=== PATIENT | female | born 1955 | race Caucasian/White ===

== ENCOUNTER 2017-08-24 13:54 | Inpatient (IN) | payer OTHER ==
[~2017-08-24] VITALS: Ht 180.3 cm; Wt 87.8 kg
--- NOTE | 2017-08-24 10:45 | Operative Report ---
Operative/Inv Procedure Report Surgeon/Cafe Attendant: Marquita Rosales MD 3. Middle turbinate reduction, bilateral Pre-Operative Diagnosis: 1. Deviated nasal septum 2. Inferior turbinate hypertrophy, bilateral 3. Middle turbinate hypertrophy, bilateral Post-Operative Diagnosis: Same Estimated Blood Loss: less than 50ml Surgeon/Cafe Attendant: Marquita Rosales MD Anesthesia: general endotracheal tube Specimens: Septum, inferior turbinates, middle turbinates Complications: Non- Condition: Stable on leaving the OR Operative Indication: Difficulty breathing through nose Recurrent sinusitis Long treatment with medical therapy without improvement, including antihistamines decongestant nasal sprays Operative/Procedure Note Note: The patient was brought to the operating room. Placed on the operating room table in supine position. At first timeout was performed identifying the patient, ID numbers and procedure to be performed. Next general oral endotracheal anesthesia was induced. Endotracheal tube was secured with tape over the last corner of the lip. Operating room table was rotated 90 to the left and patient was positioned for septal surgery with head slightly hyperextended and rotated to the right. At first vasoconstriction was carried by application of Afrin spray on cottonoid pledgets. Next nasal septum was injected with 1% lidocaine with 1: 100,000 epinephrine approximately 9 mL was injected on the last and another 6 mL on the right. This followed by placement of cotton pledgets saturated with cocaine flakes and Afrin spray. Patient's face was then prepped and draped in routine manner and surgery was performed. A KISS sponge was placed into the nasopharynx for drainage secretions. A Hemitransfixion incision was placed on the left and anterior mucoperichondrial tunnel was elevated followed by posterior mucoperiosteal tunnel. Bony cartilaginous junction was identified and and mucoperiosteal tunnel was elevated on the contralateral side. And anteriorly there was quadrangular cartilage prominence to the left adjacent to the maxillary crest as well as superiorly adjacent to perpendicular plate of the ethmoid. Posteriorly there was significant vomerine protrusion with a spur to the left. At first quadrangular cartilage was shaved along the floor of the nose followed by chiseling of the maxillary crest. This relieved the inferior obstruction. Superiorly bony cartilaginous junction was and some of the quadrangular cartilage was shaved to relieve superior obstruction. Attention was paid to the vomerine bone. The bone was removed in a piecemeal manner followed by removal of the vomerine spurr. This relieved posterior obstruction. During removal of the spur also small fenestra was created in the posterior septum to serve as a drainage hole. Once the septoplasty was completed, closure was carried with 5-0 chromic simple sutures. Followed by placement of a mattress sutures with 5-0 chromic. Please note that the entire septoplasty was carried with 0 scope as well as directed visualization with a headlight. Next left middle turbinate was reduced along its inferior border with direct visualization with 0 scope. Similar procedure was carried on the right. The right middle turbinate was reduced along its inferior border. The middle turbinates were hypertrophied and obstructing the middle meatus. Next inferior turbinates were then outfractured and excised in submucous maner, first left then right. Surgery was completed. Nasal packing was applied next. Nasal fossa was packed with Telfa saturated with Bactroban ointment. Telfa was stitched anteriorly with 2-0 silk to prevent posterior displacement. Helotene slurry was injected into the middle meatus bilaterally for hemostasis. Surgery was completed. The patient was reawakened, extubated and taken to the recovery room in good condition. There were no complications. Estimated blood was was 30 mL. Discharge Disposition: PACU
[2017-08-24] MEDS ORDERED: MIRALAX119 GM PO (14:17)
[2017-08-24 14:50] LABS: ABSOLUTE BASOPHIL COUNT 0 /CUMM (0.0-0.2); ABSOLUTE EOSINOPHIL COUNT 0.1 /CUMM (0.0-0.7); ABSOLUTE GRANULOCYTE CT 4.4 /CUMM (1.4-6.5); ABSOLUTE LYMPH COUNT 2.8 /CUMM (1.2-3.4); ABSOLUTE MONOCYTE COUNT 0.6 /CUMM (0.10-0.60); BASOPHIL % 0.4 % (0.0-2.0); EOSINOPHIL % 1.6 % (0-5); GRANULOCYTE % 55.2 % (42.2-75.2); HEMATOCRIT 44.2 % (37-47); MEAN CORPUSCULAR HGB 29.3 PG (27.0-31.0); MEAN CORPUSCULAR HGB CONC 33.2 G/DL (33.0-37.0); MEAN CORPUSCULAR VOLUME 88.1 FL (81.0-99.0); MEAN PLATELET VOLUME 9.6 FL (7.4-10.4); PLATELET COUNT 217 /CUMM (130-400); RBC DISTRIBUTION WIDTH 13.8 % (11.5-14.5); RED BLOOD CELL CT 5.02 /CUMM (4.20-5.40); WHITE BLOOD CELL COUNT 7.9 /CUMM (4.8-10.8)
--- NOTE | 2017-08-24 14:57 | ED CARDIAC/CP/PALPITATIONS ---
History of Present Illness General Chief Complaint: General Adult Stated Complaint: SENT TO ER FROM [facility] FOR HR 32 AND BIGEMINY Source: patient, family Exam Limitations: no limitations Allergies Coded Allergies: prochlorperazine (From COMPAZINE) (Severe, DELIRIUM 08/23/17) shellfish derived (Mild, REDNESS TO FACE 08/24/17) Reconcile Medications Polyethylene Glycol 3350 (Miralax) 17 GRAM/DOSE POWDER 17 GM PO DAILY CHRONIC CONSTIPATION (Reported) mix with water, juice, soda, coffee or tea Triage Note: TRIAGE: PT BROUGHT TO ER FROM SAME DAY SURGERY FOR HR 32 AND BIGEMINY. PT WAS SCHEDULED FOR SURGERY FOR DEVIATED SEPTUM. PER KG FROM [facility] PATIENT HAD NO MEDICATION OR NO PART OF PROCEDURE INITIATED. PT HAS IV ACCESS TO R HAND FROM [facility]. PT DENIES ANY PAIN OR ANY COMPLAINTS AT ALL. HR RANGE 60-80 ON SEDIMENT REMEDIATION CONSULTANT, EKG PENDING. Triage Nurses Notes Reviewed? yes Onset: Abrupt Duration: hour(s): Timing: single episode today Quality/Severity: moderate HPI: 62YO FEMALE presents to ED from the OR for a planned deviated septum surgery due to low heart rate of 32bpm. She has no history of significant bradycardia in the past, she has never seen a managed care director. Patient has been NPO since last night prior to surgery. Patient currently feels in her usual state of health, remains asymptomatic. She endorses tingling in her feet at night time for the past year but she denies any vitamin deficiency issues. She denies chest pain, palpitations, shortness of breath, nausea, vomiting, dysuria, abdominal pain, headache, lightheadedness, constipation, or diarrhea. She states that she exercises three times a week. (Princess GALVAN,Adali Mejía) Vital Signs & Intake/Output Vital Signs & Intake/Output Vital Signs Date Time Temp Pulse Resp B/P B/P Pulse O2 O2 Flow FiO2 Mean Ox Delivery Rate 08/24 1713 98.2 61 18 130/74 99 Room Air 08/24 1443 Room Air Room Air 08/24 1405 98.1 99 20 154/68 96 Room Air (Yaima QUIGLEY,Edgar Rios) Past History Travel History Traveled to [place] past 21 day No Medical History Any Pertinent Medical History? 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 No (Adali Morgan) Review of Systems Review of Systems Constitutional: Reports: no symptoms. EENTM: Reports: no symptoms. Respiratory: Reports: no symptoms. Cardiovascular: Reports: see HPI. GI: Reports: no symptoms. Genitourinary: Reports: no symptoms. Musculoskeletal: Reports: no symptoms. Skin: Reports: no symptoms. Neurological/Psychological: Reports: see HPI. Hematologic/Endocrine: Reports: no symptoms. Immunologic/Allergic: Reports: no symptoms. All Other Systems: Reviewed and Negative (Adali Morgan) Physical Exam Physical Exam General Appearance: well developed/nourished, no apparent distress, alert, awake Head: atraumatic, normal appearance Eyes: Bilateral: normal appearance. Ears, Nose, Throat: hearing grossly normal Neck: normal inspection, supple, full range of motion Respiratory: normal breath sounds, no respiratory distress, lungs clear Cardiovascular: bradycardia Peripheral Pulses: 2+ radial (R), 2+ radial (L), 2+ dorsalis pedis (R), 2+ dorsalis pedis (L) Gastrointestinal: normal bowel sounds, soft, non-tender, no organomegaly, healed surgical scars Back: normal inspection, normal range of motion Extremities: normal inspection, normal range of motion, no edema Neurologic/Psych: no motor/sensory deficits, awake, alert, oriented x 3 Skin: intact, normal color, warm/dry Core Measures ACS in differential dx? Yes CVA/TIA Diagnosis No Sepsis Present: No Sepsis Focused Exam Completed? No (Adali Morgan) Progress Differential Diagnosis: AMI, atrial fibrillation, CHF/pulm edema, PVCs/PACs, drug induced bradycardia, hypothermia, hypothyroidism, electrolyte abnormality Diagnostic Imaging: Viewed by Me: Radiology Read. Discussed w/RAD: Radiology Read. Radiology Impression: PATIENT: LISHA MATAMOROS PRESENT AGE : 62 PATIENT ACCOUNT NO: [id number] : 53 LOCATION: [facility] ORDERING PHYSICIAN: Adali GALVAN SERVICE DATE: 08/24/17 EXAM TYPE: RAD - XRY-PORTABLE CHEST XRAY EXAMINATION: XR PORTABLE CHEST CLINICAL INFORMATION: Bradycardia COMPARISON: None TECHNIQUE: Portable frontal view of the chest was obtained. FINDINGS: Cardiac leads overlie the chest. The lungs are well expanded. There is no focal consolidation, edema, or effusion. No pneumothorax. The cardiomediastinal silhouette is within normal limits. No acute osseous abnormality. IMPRESSION: No acute pulmonary findings. DICTATED BY: Jay QUIGLEY,Triston DATE/TIME DICTATED:08/24/171518 NEWSPAPER SUBSCRIPTION SOLICITOR:DEEDEE DATE/ TIME TRANSCRIBED:08/24/171518 CONFIDENTIAL, DO NOT COPY WITHOUT APPROPRIATE AUTHORIZATION. <Electronically signed in Other Vendor System> SIGNED BY: Jay QUIGLEY,Triston 08/24/17 1524 Initial ED EKG: sinus bradycardia with ventricular bigeminy (Princess GALVAN,Adali Mejía) Plan of Care: Orders Procedure Date/time Status Heart Healthy Diet 08/25 B Active Heart Healthy Diet 08/24 D Complete Patient Data 08/24 1856 Active Misc Message 08/24 183 Active ED Holding Orders 08/24 1838 Active Admit to inpatient 08/24 1838 Active Vital Signs 08/24 1838 Active Code Status 08/24 183 Active Add-on Test (ER Only) 08/24 1517 Active THYROID STIMULATING HORMONE 08/24 1440 Complete FREE T4 08/24 1440 Complete Telemetry/Diet Technician Registered 08/24 1359 Active TROPONIN LEVEL 08/24 1359 Complete COMPREHENSIVE METABOLIC PANEL 08/24 1359 Complete CBC WITHOUT DIFFERENTIAL 08/24 1359 Complete EKG 08/24 1359 Active Laboratory Tests 08/24/17 1440: Anion Gap 12, Estimated GFR > 60, BUN/Creatinine Ratio 23.3, Glucose 88, Calcium 9.5, Total Bilirubin 0.8, AST 22, ALT 30, Alkaline Phosphatase 69, Troponin I < 0.01, Total Protein 7.0, Albumin 4.1, Globulin 2.9, Albumin/Globulin Ratio 1.4, TSH 0.488, Free T4 1.35, CBC w Diff NO MAN DIFF REQ, RBC 5.02, MCV 88.1, MCH 29.3, MCHC 33.2, RDW 13.8, MPV 9.6, Gran % 55.2, Lymphocytes % 35.7, Monocytes % 7.1, Eosinophils % 1.6, Basophils % 0.4, Absolute Granulocytes 4.4, Absolute Lymphocytes 2.8, Absolute Monocytes 0.6, Absolute Eosinophils 0.1, Absolute Basophils 0 Patient's workup shows no acute abnormality however her EKG does show significant sinus bradycardia with ventricular bigeminy. Patient has been on telemetry monitoring with persistent bradycardia on monitors. Patient has no history of previous arrhythmia or bradycardia. I discussed findings with managed care director Dr. Arevalo who recommends hospital stay for further cardiac evaluation. Case management recommend full admission. Dr. Erwin spoke with hospitalist regarding this patient's telemetry admission. (Adali Morgan) (Yaima QUIGLEY,Edgar Rios) Departure Departure Disposition: STILL A PATIENT Condition: Stable Clinical Impression Primary Impression: Bradycardia Secondary Impressions: Ventricular bigeminy Referrals: Jen Fox MD (PCP/Family) Departure Forms: Customer Survey General Discharge Information Admission Note Spoke With: Yareli Ceja MD Documentation of Exam: Documentation of any treatments & extenuating circumstances including Concerns Regarding Discharge (functional status, medication knowledge or non-compliance, living conditions, etc.) that warrant an admission rather than observation: [ Bradycardia with ventricular trigeminy requiring telemetry monitoring, cardiology consult, repeat EKGs and and troponins, premature discharge medically unsafe.] (Adali Morgan) PA/TACTICAL AIR DEFENSE CONTROLLER Co-Sign Statement Statement: ED Attending supervision documentation- [X] I saw and evaluated the patient. I have also reviewed all the pertinent lab results and diagnostic results. I agree with the findings and the plan of care as documented in the PA's/TACTICAL AIR DEFENSE CONTROLLER's documentation. Patient presents for evaluation of a slow heart rate. Physical examination reveals an alert conversant uncomfortable appearing woman with a somewhat slow but otherwise regular heartbeat. [] I have reviewed the ED Record and agree with the PA's/TACTICAL AIR DEFENSE CONTROLLER's documentation. [] Additions or exceptions (if any) to the PAs/TACTICAL AIR DEFENSE CONTROLLER's note and plan are summarized below: [] (Yaima QUIGLEY,Edgar Rios) Critical Care Note Critical Care Note Critical Care Time: non-applicable (Adali Morgan)
--- NOTE | 2017-08-24 15:24 | RADIOLOGY REPORT ---
EXAMINATION: XR PORTABLE CHEST CLINICAL INFORMATION: Bradycardia COMPARISON: None TECHNIQUE: Portable frontal view of the chest was obtained. FINDINGS: Cardiac leads overlie the chest. The lungs are well expanded. There is no focal consolidation, edema, or effusion. No pneumothorax. The cardiomediastinal silhouette is within normal limits. No acute osseous abnormality. IMPRESSION: No acute pulmonary findings.
--- NOTE | 2017-08-24 19:21 | History & Physical ---
Claudia Monique 08/24/171919: General Information and HPI MD Statement: I have seen and personally examined LISHA MATAMOROS and documented this H&P. The patient is a 62 year old F who presented with a patient stated chief complaint of [bradycardia]. Source of Information: patient Exam Limitations: no limitations History of Present Illness: 62-year-old female with a past medical history of melanoma, diaphragmatic hernia s/p surgery in 1999 x2; intestinal obstruction x3 s/p surgery squamous cell, deviated nasal septum, GERD who presents to the ER from same day surgery for asymptomatic bradycardia with a heart rate of 32 and ventricular bigeminy. According to the patient she was in her usual state of health and is scheduled for surgery for her deviated nasal septum this morning. She states that preoperatively her blood pressure was 109/74 and her heart rate was in the 70s. She states she usually gets up at 5 AM, however, endorses getting up a little late this morning around 8 AM she felt a little bit more sleepy than usual today. She states that her [id number] brought her to the ER and she was completely fine until she was on the operating table when the nurse told her that her heart rate was in the 30s. Of note patient does have bradycardia with heart rate each day is in the 50s while at rest and it goes up to a maximum of 70-80s while she is walking around. Of note patient does exercise 3 times a day and does a lot of water aerobics and bicycles. She denies any chest pain, palpitations, any fluttering of the heart, any shortness of breath, orthopnea, PND, nausea, vomiting, any heartburn-like symptoms, any loss of consciousness or passing out while exercising, any family history of early cardiac however does occasionally endorse some. Of note patient has a history of diaphragmatic hernia for which he underwent surgeries 1999. 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 As the medical team went to examine the patient, she complained of being a little clammy and slightly diaphoretic, however, denied any chest pain or palpitations. Family history pertinent for his father was 90 years of age and ended up getting a pacemaker. Allergies/Medications Allergies: Coded Allergies: prochlorperazine (From COMPAZINE) (Severe, DELIRIUM 08/23/17) shellfish derived (Mild, REDNESS TO FACE 08/24/17) Home Med list Polyethylene Glycol 3350 (Miralax) 17 GRAM/DOSE POWDER 17 GM PO DAILY CHRONIC CONSTIPATION (Reported) mix with water, juice, soda, coffee or tea Past History Travel History Traveled to [place] past 21 day No Medical History Neurological: NONE EENT: DEVITATED SEPTUM Cardiovascular: NONE Respiratory: NONE Gastrointestinal: GERD, DIPHRAHMATIC HERNIA ARTIFICIAL DIAPHRAGM SBO CHRONIC CONSTIPATION Hepatic: NONE Renal: NONE Musculoskeletal: NONE Psychiatric: NONE Endocrine: NONE Blood Disorders: NONE Cancer(s): melanoma, 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 Psychosocial History Where do you live? Home Primary Language: Nepalese Smoking Status: Never Smoked ETOH Use: occasional use Illicit Drug Use: denies illicit drug use Review of Systems Review of Systems Constitutional: Reports: diaphoresis. Denies: chills, fever, malaise, weakness. EENTM: Denies: visual changes. Cardiovascular: Denies: chest pain, edema, orthopena, palpitations, peripheral edema, syncope. Respiratory: Denies: cough, hemoptysis, orthopnea, short of breath, sputum production, wheezing. GI: Denies: abdominal pain, constipation, diarrhea, melena, nausea, vomiting. Genitourinary: Reports: no symptoms. Musculoskeletal: Reports: no symptoms. Neurological/Psychological: Denies: headache, numbness, tingling, tremors. Exam & Diagnostic Data Last 24 Hrs of Vital Signs/I&O Vital Signs Date Time Temp Pulse Resp B/P B/P Pulse O2 O2 Flow FiO2 Mean Ox Delivery Rate 08/25 2055 97 Room Air 08/24 2033 44 18 160/80 97 Room Air 08/24 2028 97.6 37 18 147/75 98 Room Air 08/24 1713 98.2 61 18 130/74 99 Room Air 08/24 1443 Room Air Room Air 08/24 1405 98.1 99 20 154/68 96 Room Air Intake & Output 08/24 1600 08/24 0800 04/06 0000 Intake Total Output Total Balance Patient 190 lb Weight Weight Reported by Patient Measurement Method Physical Exam General Appearance Alert, Oriented X3, Cooperative, No Acute Distress Skin No Rashes Skin Temp/Moisture Exam: Warm/Dry Sepsis Skin Exam (color): Normal for Ethnicity HEENT Atraumatic, PERRLA, EOMI, Mucous Membr. moist/pink Neck Supple, No JVD, No thryomegaly, No LAD Cardiovascular Normal S1, Normal S2, No Murmurs, sinus bradycardia Lungs Clear to Auscultation, Normal Air Movement Abdomen Normal Bowel Sounds, Soft, No Tenderness Neurological Normal Speech, Strength at 5/5 X4 Ext, Normal Tone, Sensation Intact, Cranial Nerves 3-12 NL, Reflexes 2+ Extremities No Clubbing, No Cyanosis, No Edema, Normal Pulses, No Tenderness/ Swelling Sepsis Peripheral Pulse Location: Dorsalis Pedis Last 24 Hrs of Labs/Subhash: Laboratory Tests 08/24/17 2016: Troponin I Pending 08/24/17 1440: Anion Gap 12, Estimated GFR > 60, BUN/Creatinine Ratio 23.3, Glucose 88, Calcium 9.5, Phosphorus Pending, Magnesium Pending, Total Bilirubin 0.8, AST 22, ALT 30, Alkaline Phosphatase 69, Troponin I < 0.01, Total Protein 7.0, Albumin 4.1, Globulin 2.9, Albumin/Globulin Ratio 1.4, TSH 0.488, Free T4 1.35, CBC w Diff NO MAN DIFF REQ, RBC 5.02, MCV 88.1, MCH 29.3, MCHC 33.2, RDW 13.8, MPV 9.6, Gran % 55.2, Lymphocytes % 35.7, Monocytes % 7.1, Eosinophils % 1.6, Basophils % 0.4, Absolute Granulocytes 4.4, Absolute Lymphocytes 2.8, Absolute Monocytes 0.6, Absolute Eosinophils 0.1, Absolute Basophils 0, Lyme Disease Antibody Pending Diagnostic Data EKG Results Ventricular bigeminy, HR: 40; normal axis; no ST-T changes CXR Results FINDINGS: Cardiac leads overlie the chest. The lungs are well expanded. There is no focal consolidation, edema, or effusion. No pneumothorax. The cardiomediastinal silhouette is within normal limits. No acute osseous abnormality. IMPRESSION: No acute pulmonary findings. Assessment/Plan Assessment: 62-year-old female with a past medical history of melanoma, squamous cell, deviated nasal septum, GERD who presents to the ER from same day surgery for asymptomatic bradycardia with a heart rate of 32 and ventricular bigeminy. Vitals at the time of admission blood pressure 130/74, respiratory rate of 18, pulse 61, afebrile saturating 99% on room air. Labs pertinent for normal white blood cell count of 7900, H&H of 14.7/44.2, platelet count of 217,000. Serum chemistries pertinent for sodium of 145, potassium 4.4, bicarb of 26, anion gap of 12, BUN 14 with a creatinine of 0.6. LFTs unremarkable with a total bili of 0.8, AST/ALT of 22/30, alk phos of 69, first of troponin negative less than 0.01 and TSH of 0.488 with a free T4 1.35. Chest x-ray showed no acute pulmonary findings. EKG revealed ventricular bigeminy with HR: 40; normal axis; no ST-T changes. Assessment and plan Admit patient to telemetry #Ventricular bigeminy Continue to maintain on the monitor for another 24-48 hours Most likely an incidental finding. Will r/o ACS with trop and EKG @ 8:00pm and 2:00am Echo to r.o RWMA, and any valvular abnormalities Follow-up serum magnesium and phosphorus level Follow-up lipid profile in the Admister ASA Atropine at bedside, if HR <30 Apply pacer pads Cardiology consult placed with Dr. Arevalo. F/U recs. DVT prophylaxis Fibrin 5000 international units daily subcu Diet Heart healthy CODE STATUS Full code As Ranked By This Provider Problem List: 1. Ventricular bigeminy 2. Bradycardia Core Measures/Misc (02/04) Acute Coronary Syndrome ACS Diagnosis: No Congestive Heart Failure Congestive Heart Failure Diagnosis No Cerebrovascular Accident CVA/TIA Diagnosis: No VTE (View Protocol) VTE Risk Factors Age>40 No Mechanical VTE Prophylaxis d/t N/A MechProphylax Ordered No VTE Pharm Prophylaxis d/t NA PharmProphylax ordered Sepsis (View protocol) Sepsis Present: No Resident Review Statement Resident Statement: ADMITTED BY RESIDENT Yareli Ceja 08/25/17 0447: Attending MD Review Statement Attending Statement Attending MD Statement: examined this patient, discuss w/resident/PA/CANDY PACKER, agreed w/resident/PA/CANDY PACKER, reviewed EMR data (avail), reviewed images, amended to note Attending Assessment/Plan: CC: Bradycardia PMH: History of bowel resection in the past, fundoplication Patient was at same day surgery for deviated nasal septum, her blood pressure was 109/74 and pulse 74 preop. Just before for procedure in OR her heart rate dropped to 34 with ventricular bigeminy. Patient was completely asymptomatic at that time but surgery was aborted and patient was sent to ER. Patient did not notice any chest pain, palpitation, diaphoresis when low heart rate was noticed. Patient states that her heart rate at home remains from 40s to 50s, (observing her fitbit ), physically active and never noticed any chest pain, palpitation, diaphoresis during exercise. While in ER around 8:30 PM she had another episode of low pulse at that time she felt flushed and clammy, episode resolved without treatment. Vitals: Afebrile, pulse 35-99, RR 20, blood pressure 154/68, saturating 96% on room air On exam: A O 3, cooperative, no acute distress, neck supple, JVD normal, no lymphadenopathy, mucosa moist, no focal neurological deficit, no dependent edema , no obvious skin rashes or inflammation CVS: S1-S2, RRR, faint diastolic murmur in mitral area. RS: Clear to auscultate bilaterally. Abdomen: Soft, NT, ND, bowel sounds present. Peripheral pulses perfusion normal CXR: No acute pulmonary findings. Assessment and plan 62-year-old female with no significant medical history, multiple surgeries in the past presented in ER from OR after incidental finding of bradycardia and ventricular bigeminy. Patient did not have any symptoms during that episode, later pulse regularized to 80s and 90s. Patient had second episode while in ER, similar bradycardia with bigeminy at that time she felt mild flushed and clammy but episode resolved by itself. Before today no such symptoms, physically active without any chest pain, palpitation, presyncope. Physical exam unremarkable except faint diastolic murmur in the mitral area. Given the arrhythmias patient would benefit telemetry admission. Dr. Arevalo was called for cardiology who agrees with the plan. + Ventricular bigeminy - Admit to telemetry - Continuous telemetry monitoring - Serial troponins and ECGs - Echocardiogram in a.m. - Check magnesium and phosphorus, replete if low - Continue pacer pads on an bedside atropine if required - DVT prophylaxis
--- NOTE | 2017-08-24 22:34 | Cons- Cardiology ---
General Information and HPI Consulting Request Date of Consult: 08/25/17 Requested By: Yareli Ceja MD Reason for Consult: Ventricular bigeminy, bradycardia History of Present Illness: The patient is a 62-year-old female with history of melanoma, GERD, and multiple abdominal surgeries who presented for elective surgery for deviated septum. When placed on the monitor she was noted to be in ventricular bigeminy with sinus bradycardia. During periods of bigeminy, her heart rate was noted to drop into the 40s. She was placed on telemetry for overnight monitoring. She has been completely asymptomatic. She has had no syncope. No lightheadedness or dizziness. No presyncope. No fatigue. She denies any symptoms attributable to bradycardia. No chest pain. No prior cardiac history. She has been noted to have premature ventricular contractions in the past. Allergies/Medications Allergies: Coded Allergies: prochlorperazine (From COMPAZINE) (Severe, DELIRIUM 08/23/17) shellfish derived (Mild, REDNESS TO FACE 08/24/17) Home Med List: Polyethylene Glycol 3350 (Miralax) 17 GRAM/DOSE POWDER 17 GM PO DAILY CHRONIC CONSTIPATION (Reported) mix with water, juice, soda, coffee or tea Current Medications: Current Medications Sig/Melvina Start time Last Medication Dose Route Stop Time Status Admin Aspirin 81 MG DAILY 08/25 1000 AC 08/25 PO 1010 Atropine Sulfate 1 MG .STK-MED ONE 08/25 0506 DC IM 08/25 0507 Atropine Sulfate 1 MG ONE ONE 08/24 2100 DC IV 08/24 2101 Atropine Sulfate 0 .STK-MED ONE 08/24 2045 DC .ROUTE Heparin Sodium 5,000 UNIT Q8 08/24 2200 AC (Porcine) SC Polyethylene Glycol 17 GM DAILY 08/25 1119 AC PO Review of Systems Review of Systems: No rash. No tremor. No melena. All other systems were reviewed, and were noted to be negative. 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 Pacemaker FATHER Psychosocial History Where Do You Live? Home Smoking Status: Never Smoked ETOH Use: occasional use Illicit Drug Use: denies illicit drug use Exam & Diagnostic Data Vital Signs and I&O Vital Signs Date Time Temp Pulse Resp B/P B/P Pulse O2 O2 Flow FiO2 Mean Ox Delivery Rate 08/25 1345 55 08/25 1000 40 08/25 0742 97.8 57 18 122/78 94 Room Air 08/24 2242 97.8 35 18 142/78 97 08/246 97 Room Air 08/24 203 44 18 160/80 97 Room Air 08/24 2028 97.6 37 18 147/75 98 Room Air 08/24 1713 98.2 61 18 130/74 99 Room Air 08/24 1443 Room Air Room Air Intake & Output 08/25 1600 08/25 0800 08/25 0000 08/24 1600 08/24 0800 08/24 0000 Intake Total 660 550 200 Output Total Balance 660 550 200 Intake, Oral 660 550 200 Number 1 Bowel Movements Patient 194 lb 190 lb Weight Weight Bed scale Reported by Patient Measurement Method Physical Exam: Gen: The patient is in no acute distress HEENT: Normal nose, ears, and oropharynx. Pupils equal bilaterally. Conjunctiva normal. Neck: Supple with no JVD, no masses, and no thyromegaly Lungs: Clear to auscultation with normal respiratory effort Heart: RRR, S1, S2, with frequent ectopy, 2/6 systolic murmur at the apex. No peripheral edema, 2+ pulses in the lower extremities bilaterally Abdomen: Soft, nontender, no masses. No hepatomegaly. No splenomegaly Extremities: No clubbing or cyanosis. Normal muscle strength in the upper and lower extremities Skin: Normal skin turgor with no skin ulcers or lesions noted. Neuro: Cranial nerves intact. Sensation intact Psych: Alert and oriented x 3 with appropriate affect Labs/Subhash Results: Laboratory Tests 08/25 Chemistry Sodium (137 - 145 mmol/L) 142 Potassium (3.5 - 5.1 mmol/L) 3.7 Chloride (98 - 107 mmol/L) 111 H Carbon Dioxide (22 - 30 mmol/L) 19 L Anion Gap (5 - 16) 13 BUN (7 - 17 mg/dL) 12 Creatinine (0.5 - 1.0 mg/dL) 0.6 Estimated GFR (>60 ml/min) > 60 BUN/Creatinine Ratio (7 - 25 %) 20.0 Troponin I (< 0.11 ng/ml) < 0.01 < 0.01 Triglycerides (<150 mg/dL) 108 Cholesterol (<200 MG/DL) 168 LDL Cholesterol, Calc (65 - 129 mg/dL) 89 HDL Cholesterol (40 - 60 mg/dL) 58 Cholesterol/HDL Ratio (0.00 - 4.23 %) 3 Hematology CBC w Diff NO MAN DIFF REQ WBC (4.8 - 10.8 /CUMM) 5.7 RBC (4.20 - 5.40 /CUMM) 4.54 Hgb (12.0 - 16.0 G/DL) 13.5 Hct (37 - 47 %) 39.9 MCV (81.0 - 99.0 FL) 87.9 MCH (27.0 - 31.0 PG) 29.7 MCHC (33.0 - 37.0 G/DL) 33.8 RDW (11.5 - 14.5 %) 13.5 Plt Count (130 - 400 /CUMM) 177 MPV (7.4 - 10.4 FL) 9.7 Gran % (42.2 - 75.2 %) 48.2 Lymphocytes % (20.5 - 51.1 %) 41.7 Monocytes % (1.7 - 9.3 %) 6.5 Eosinophils % (0 - 5 %) 2.5 Basophils % (0.0 - 2.0 %) 1.1 Absolute Granulocytes (1.4 - 6.5 /CUMM) 2.7 Absolute Lymphocytes (1.2 - 3.4 /CUMM) 2.4 Absolute Monocytes (0.10 - 0.60 /CUMM) 0.4 Absolute Eosinophils (0.0 - 0.7 /CUMM) 0.1 Absolute Basophils (0.0 - 0.2 /CUMM) 0.1 04/06 1440 Chemistry Sodium (137 - 145 mmol/L) 145 Potassium (3.5 - 5.1 mmol/L) 4.4 Chloride (98 - 107 mmol/L) 107 Carbon Dioxide (22 - 30 mmol/L) 26 Anion Gap (5 - 16) 12 BUN (7 - 17 mg/dL) 14 Creatinine (0.5 - 1.0 mg/dL) 0.6 Estimated GFR (>60 ml/min) > 60 BUN/Creatinine Ratio (7 - 25 %) 23.3 Glucose (65 - 99 mg/dL) 88 Calcium (8.4 - 10.2 mg/dL) 9.5 Phosphorus (2.5 - 4.5 mg/dL) 4.7 H Magnesium (1.6 - 2.3 mg/dL) 2.1 Total Bilirubin (0.2 - 1.3 mg/dL) 0.8 AST (14 - 36 U/L) 22 ALT (9 - 52 U/L) 30 Alkaline Phosphatase (<127 U/L) 69 Troponin I (< 0.11 ng/ml) < 0.01 Total Protein (6.3 - 8.2 g/dL) 7.0 Albumin (3.5 - 5.0 g/dL) 4.1 Globulin (1.9 - 4.2 gm/dL) 2.9 Albumin/Globulin Ratio (1.1 - 2.2 %) 1.4 TSH (0.270 - 4.200 uIU/mL) 0.488 Free T4 (0.78 - 2.44 ng/dL) 1.35 Hematology CBC w Diff NO MAN DIFF REQ WBC (4.8 - 10.8 /CUMM) 7.9 RBC (4.20 - 5.40 /CUMM) 5.02 Hgb (12.0 - 16.0 G/DL) 14.7 Hct (37 - 47 %) 44.2 MCV (81.0 - 99.0 FL) 88.1 MCH (27.0 - 31.0 PG) 29.3 MCHC (33.0 - 37.0 G/DL) 33.2 RDW (11.5 - 14.5 %) 13.8 Plt Count (130 - 400 /CUMM) 217 MPV (7.4 - 10.4 FL) 9.6 Gran % (42.2 - 75.2 %) 55.2 Lymphocytes % (20.5 - 51.1 %) 35.7 Monocytes % (1.7 - 9.3 %) 7.1 Eosinophils % (0 - 5 %) 1.6 Basophils % (0.0 - 2.0 %) 0.4 Absolute Granulocytes (1.4 - 6.5 /CUMM) 4.4 Absolute Lymphocytes (1.2 - 3.4 /CUMM) 2.8 Absolute Monocytes (0.10 - 0.60 /CUMM) 0.6 Absolute Eosinophils (0.0 - 0.7 /CUMM) 0.1 Absolute Basophils (0.0 - 0.2 /CUMM) 0 Serology Lyme Disease Antibody Pending Diagnostic Data EKG Results EKG tracings are independently reviewed. EKG from 08/24/17 at 1424 shows sinus rhythm with ventricular bigeminy at a rate of 60. Nonspecific T-wave abnormality EKG today reveals normal sinus rhythm at 50 with borderline left axis deviation. No ectopy is seen on repeat EKG CXR Results Cardiac leads overlie the chest. The lungs are well expanded. There is no focal consolidation, edema, or effusion. No pneumothorax. The cardiomediastinal silhouette is within normal limits. No acute osseous abnormality. Assessment/Plan Assessment/Plan Assessment: 62-year-old female presenting for elective surgery, found to be in ventricular bigeminy with sinus bradycardia. She is completely asymptomatic. Recommendations: * Echocardiogram to rule out cardiomyopathy secondary to ventricular ectopy and to evaluate for mitral regurgitation given the apical murmur. Because of the lack of availability of echocardiography today in the hospital, the echocardiogram can be done as an outpatient * Okay for discharge to home from cardiac stand point * Follow up in the office within 1 week. Echocardiogram to be scheduled in the office. * No indication for pacemaker placement for the asymptomatic sinus bradycardia * Will obtain an outpatient Holter monitor to quantify the frequency of the premature ventricular contractions Consult Acknowledgment - Thank you for your consult request.
[2017-08-24 22:42] VITALS: BP 132/74; BP 142/78
--- NOTE | 2017-08-25 04:48 | Admission Certification ---
Admission Certification Certification Statement - As attending physician, I certify that at the time of - admission, based on clinical presentation, severity of - symptoms, need for further diagnostic testing and - therapeutic interventions, and risk of adverse outcomes - without in-hospital treatment, in my clinical assessment, - this patient requires an acute hospital stay for a minimum - of two nights or longer. I have also considered psychsocial - factors such as support system, advanced age, financial - issues, cognitive issues, and failed out-patient treatments, - past re-admission history, safety of patient, and lack of - compliance as applicable. Specific rationale supporting this admission is: New onset ventricular bigeminy
[2017-08-25 07:42] VITALS: BP 122/78
--- NOTE | 2017-08-25 08:49 | PN- Housestaff ---
Sabrina Mccarthy 08/25/17 0849: Subjective Follow-up For: Bradycardia Complaints: no complaints Tele-Events Since Last Visit: Sinus bradycardia to sinus rhythm heart rate ranges from 58-64, Pvc Subjective: She was seen and examined this morning. She was lying comfortably on bed was complaining of slight diaphoresis/sweating but most likely due to getting hot having multiple blankets denies any chest pain or palpitations. she denied any lightheadedness or dizziness. Review of Systems Constitutional: Reports: diaphoresis. Cardiovascular: Denies: chest pain, edema. Respiratory: Denies: cough, orthopnea. Gastrointestinal: Denies: constipation, distention. Genitourinary: Denies: discharge, hesitation. Musculoskeletal: Denies: see HPI, gout, joint pain. Objective Last 24 Hrs of Vital Signs/I&O Vital Signs Date Time Temp Pulse Resp B/P B/P Pulse O2 O2 Flow FiO2 Mean Ox Delivery Rate 08/25 0742 97.8 57 18 122/78 94 Room Air 08/24 2242 97.8 35 18 142/78 97 08/25 2055 97 Room Air 08/24 2033 44 18 160/80 97 Room Air 08/24 2028 97.6 37 18 147/75 98 Room Air 08/24 1713 98.2 61 18 130/74 99 Room Air 08/24 1443 Room Air Room Air 08/24 1405 98.1 99 20 154/68 96 Room Air Intake & Output 08/25 1600 08/25 0800 08/25 0000 Intake Total 550 200 Output Total Balance 550 200 Intake, Oral 550 200 Patient 194 lb Weight Weight Bed scale Measurement Method Physical Exam General Appearance: Alert, Oriented X3, Cooperative, No Acute Distress Cardiovascular: Regular Rate, Normal S1, Normal S2 Lungs: Normal Air Movement Abdomen: No Tenderness Extremities: No Clubbing, No Cyanosis Current Medications: Current Medications Sig/Melvina Start time Last Medication Dose Route Stop Time Status Admin Aspirin 81 MG DAILY 08/25 1000 AC 08/25 PO 1010 Atropine Sulfate 1 MG ONE ONE 08/24 2100 DC IV 08/24 2100 Atropine Sulfate 0 .STK-MED ONE 08/24 2044 DC .ROUTE Heparin Sodium 5,000 UNIT Q8 08/24 2200 AC (Porcine) SC Last 24 Hrs of Lab/Subhash Results Last 24 Hrs of Labs/Mics: Laboratory Tests 08/25/17 0655: Anion Gap 13, Estimated GFR > 60, BUN/Creatinine Ratio 20.0, Triglycerides 108, Cholesterol 168, LDL Cholesterol, Calc 89, HDL Cholesterol 58, Cholesterol/HDL Ratio 3, CBC w Diff Pending, WBC Pending, RBC Pending, Hgb Pending, Hct Pending, MCV Pending, MCH Pending, MCHC Pending, RDW Pending, Plt Count Pending, MPV Pending 08/25/17 0205: Troponin I < 0.01 08/24/17 2016: Troponin I < 0.01 08/24/17 1440: Anion Gap 12, Estimated GFR > 60, BUN/Creatinine Ratio 23.3, Glucose 88, Calcium 9.5, Phosphorus 4.7 H, Magnesium 2.1, Total Bilirubin 0.8, AST 22, ALT 30, Alkaline Phosphatase 69, Troponin I < 0.01, Total Protein 7.0, Albumin 4.1, Globulin 2.9, Albumin/Globulin Ratio 1.4, TSH 0.488, Free T4 1.35, CBC w Diff NO MAN DIFF REQ, RBC 5.02, MCV 88.1, MCH 29.3, MCHC 33.2, RDW 13.8, MPV 9.6, Gran % 55.2, Lymphocytes % 35.7, Monocytes % 7.1, Eosinophils % 1.6, Basophils % 0.4, Absolute Granulocytes 4.4, Absolute Lymphocytes 2.8, Absolute Monocytes 0.6, Absolute Eosinophils 0.1, Absolute Basophils 0, Lyme Disease Antibody Pending Assessment/Plan Assessment: Patient is 62-year-old female with past medical history significant for squamous cell carcinoma, deviated nasal septum, GERD was at [facility] per same day surgery for her deviated nasal septum and found to be bradycardic to 32 with ventricular bigeminy. Patient was totally asymptomatic. She was kept on telemetry unit for monitoring. Will address following problems Problem #1 bradycardia with ventricular bigeminy Telemetry monitoring Electrolyte monitoring with repletion if needed Echocardiogram is still pending Cardiology evaluation by Dr. Arevalo We will avoid any beta blockers ACS was ruled out with 3 negative sets of troponinssignificant changes on EKG Problem #2 history of deviated nasal septum and melanoma Problem List: 1. Bradycardia Pain Ratin Pain Location: Not applicable Pain Goal: Remain pain free Pain Plan: Tylenol Tomorrow's Labs & Rationales: Complete blood count, BEP, magnesium and phosphorus Marlin QUIGLEY,Glendy 08/25/17 1408: Attending MD Review Statement Attending Statement Attending MD Statement: examined this patient, discuss w/resident/PA/[employer], reviewed EMR data (avail) Attending Assessment/Plan: Patient continues to have bradycardia with PVCs although this is asymptomatic. Patient denies any difficulty breathing chest pain nausea vomiting sweating or dizziness. Her vital signs occur in a stable she's afebrile saturation 94% room air. Chest exam is clear. Heart sounds S1 and S2 with systolic ejection murmur. She is currently awake alert oriented. 3 troponins have been negative. Chest x-ray yesterday did not show any acute process. Assessment plan Bradycardia PVCs Plan Await cardiac input continue telemetry monitoring
[2017-08-25 09:05] LABS: ABSOLUTE BASOPHIL COUNT 0.1 /CUMM (0.0-0.2); ABSOLUTE EOSINOPHIL COUNT 0.1 /CUMM (0.0-0.7); ABSOLUTE GRANULOCYTE CT 2.7 /CUMM (1.4-6.5); ABSOLUTE LYMPH COUNT 2.4 /CUMM (1.2-3.4); ABSOLUTE MONOCYTE COUNT 0.4 /CUMM (0.10-0.60); BASOPHIL % 1.1 % (0.0-2.0); EOSINOPHIL % 2.5 % (0-5); GRANULOCYTE % 48.2 % (42.2-75.2); HEMATOCRIT 39.9 % (37-47); MEAN CORPUSCULAR HGB 29.7 PG (27.0-31.0); MEAN CORPUSCULAR HGB CONC 33.8 G/DL (33.0-37.0); MEAN CORPUSCULAR VOLUME 87.9 FL (81.0-99.0); MEAN PLATELET VOLUME 9.7 FL (7.4-10.4); PLATELET COUNT 177 /CUMM (130-400); RBC DISTRIBUTION WIDTH 13.5 % (11.5-14.5); RED BLOOD CELL CT 4.54 /CUMM (4.20-5.40); WHITE BLOOD CELL COUNT 5.7 /CUMM (4.8-10.8)
--- NOTE | 2017-08-25 14:54 | Patient Discharge Instructions ---
Discharge Instructions General Discharge Information You were seen/treated for: A SYMPTOMATIC BRADDYCARDIA Special Instructions: please follow-up with cardiology Dr. Arevalo in 1 week of discharge for probable Holter monitor and schedule echocardiogram in office In case of any dizziness ease come to ER Please follow-up with your primary care physician in one week of discharge Diet Continue normal diet: Yes Activity Full Activity/No Limits: Yes Acute Coronary Syndrome Inclusion Criteria At DC or during hospital stay patient has or had the following: ACS DIAGNOSIS No Discharge Core Measures Meds if any: Prescribed or Continued at Discharge Meds if any: NOT Prescribed or Continued at Discharge Congestive Heart Failure Inclusion Criteria At DC or during hospital stay patient has or had the following: CHF DIAGNOSIS No Discharge Core Measures Meds if any: Prescribed or Continued at Discharge Meds if any: NOT Prescribed or Continued at Discharge Cerebrovascular accident Inclusion Criteria At DC or during hospital stay patient has or had the following: CVA/TIA Diagnosis No Discharge Core Measures Meds if any: Prescribed or Continued at Discharge Meds if any: NOT Prescribed or Continued at Discharge Venous thromboembolism Inclusion Criteria VTE Diagnosis No VTE Type NONE VTE Confirmed by (Test) NONE Discharge Core Measures - Per Current guidelines, there needs to be overlap - treatment for the first 5 days of Warfarin therapy. - If discharged on Warfarin prior to 5 days of - overlap therapy, the patient will need to be - assessed for post discharge needs including - *Post discharge parental anticoagulation - *Warfarin and/or parental anticoagulation education - *Follow up date to check INR post discharge At least 5 days overlap therapy as Inpatient No Meds if any: Prescribed or Continued at Discharge Note: Overlap Therapy is Warfarin and Anticoagulant Meds if any: NOT Prescribed or Continued at Discharge
== END 2017-08-25 15:25 | DRG 310 ==
LOC: ERH 13:54 → ERHI 18:38 → 1NO 18:38 → ENRESERV 21:42 → 1NO 21:58 → ENPENDDIS 08-25 14:55 → 1NO 08-25 15:25
PROVIDERS: Internal Medicine Infectious Disease; Physician Assistant
DX: R00.1 Bradycardia, unspecified (principal); J34.2 Deviated nasal septum; K21.9 Gastro-esophageal reflux disease without esophagitis; K59.09 Other constipation; R00.8 Other abnormalities of heart beat; I49.3 Ventricular premature depolarization; Z85.820 Personal history of malignant melanoma of skin; Z53.09 Procedure and treatment not carried out because of other contraindication; Z98.890 Other specified postprocedural states; Z91.013 Allergy to seafood; Z88.8 Allergy status to other drugs, medicaments and biological substances; Z96.643 Presence of artificial hip joint, bilateral; Z90.49 Acquired absence of other specified parts of digestive tract
CPT/HCPCS: 1NSP; 86618; 36415; 36592; 71045; 80307; 82436; 93005; 93010; J0461; J1644; J2250; J2405; J3490